=== PATIENT | female | born 1990 | race Caucasian/White ===

== ENCOUNTER 2016-06-27 15:33 | Emergency (ER) | payer OTHER ==
[2016-06-27 15:50] VITALS: BP 129/85
--- NOTE | 2016-06-27 16:16 | UC ---
Skin Complaint HPI - HPI Summary HPI Summary: The patient noticed a reddened pimple on her left lower abdomen four days ago. She states that it is now an abscess. She has a history of abscesses and of MRSA. She has been picking at it and it has been draining but she says that it is still swollen. - History of Current Complaint Chief Complaint: UCSkin Time Seen by Provider: 06/27/16 15:52 Stated Complaint: ABCESS ON STOMACH Hx Obtained From: Patient Hx Last Menstrual Period: 06/26/16 Onset/Duration: Gradual Onset, Lasting Days Onset Severity: Mild Current Severity: Moderate Location: Other - left lower abdomen Aggravating: Touch Alleviating: Nothing Associated Signs & Symptoms: Negative: Fever, Chills, Abdominal Pain - Allergy/Home Medications Allergies/Adverse Reactions: Allergies Allergy/AdvReac Type Severity Reaction Status Date / Time Sulfa Antibiotics Allergy Hives Verified 12/27/14 20:05 Home Medications: Home Medications ValACYclovir (*) [Valtrex 1 GM(*)] 1 gm PO DAILY 06/27/16 [History Confirmed 03/05] Venlafaxine HCl [Effexor XR-] 37.5 mg PO DAILY 06/27/16 [History Confirmed 06/27] Review of Systems Constitutional: Negative Skin: Other - Pimple on left lower abdomen that has swollen Eyes: Negative ENT: Negative Respiratory: Negative Cardiovascular: Negative Gastrointestinal: Negative Genitourinary: Negative Motor: Negative Neurovascular: Negative Musculoskeletal: Negative Neurological: Negative Psychological: Negative All Other Systems Reviewed And Are Negative: Yes PMH/Surg Hx/FS Hx/Imm Hx Previously Healthy: Yes Endocrine History Of: Reports: Thyroid Disease - hypo Psychological History Of: Reports: Anxiety, Depression - Surgical History Surgical History: None - Social History Occupation: Employed Full-time Alcohol Use: Rare Substance Use Type: None Smoking Status (MU): Never Smoked Tobacco Have You Smoked in the Last Year: No - Immunization History Most Recent Influenza Vaccination: n/a Most Recent Tetanus Shot: unk Most Recent Pneumonia Vaccination: n/a Physical Exam Triage Information Reviewed: Yes Appearance: Well-Appearing, No Pain Distress, Obese Vital Signs: Initial Vital Signs Temp 96.8 F 06/27/16 15:42 Pulse 97 06/27/16 15:42 Resp 18 06/27/16 15:42 BP 129/85 06/27/16 15:42 Pulse Ox 98 03/11/17 15:42 Vital Signs Reviewed: Yes Eye Exam: Normal Eyes: Positive: Conjunctiva Clear ENT Exam: Normal ENT: Positive: Normal ENT inspection, Pharynx normal. Negative: Tonsillar swelling, Tonsillar exudate Neck exam: Normal Respiratory: Positive: Chest non-tender, Lungs clear, Normal breath sounds, No respiratory distress, No accessory muscle use Cardiovascular Exam: Normal Cardiovascular: Positive: RRR, No Murmur Abdominal Exam: Other Abdomen Description: Positive: Other: - Open area on left lower abdomen draining serosanginous fluid. Six inch diameter belkofski of erythematous skin. Warm to the touch. Musculoskeletal Exam: Normal Musculoskeletal: Positive: Strength Intact Neurological Exam: Normal Neurological: Positive: Alert, Muscle Tone Normal Psychological Exam: Normal Psychological: Positive: Normal Response To Family Skin Exam: Other Skin: Positive: significant lesion(s) - Area of cellulitis as discussed above. Course/Dx - Course Course Of Treatment: This is a cellulitis affecting an area of the patient's lower left abdomen that she had irritated. We will prescribe her doxycycline. We have marked the area of cellulitis on her abdomen and have instructed her to return if there is no improvement in 36 hours. - Differential Diagnoses - Skin Complaint Differential Diagnoses: Abscess, Cellulitis, Contact Dermatitis - Diagnoses Provider Diagnoses: Cellulitis Discharge - Discharge Plan Condition: Stable Disposition: HOME Prescriptions: DOXYcycline CAP(*) [DOXYcycline 100MG CAP(*)] 100 mg PO BID #14 cap Patient Education Materials: Cellulitis (ED) Print Language: VENEZUELAN Forms: *Work Release Referrals: Gisell MCDANIELPGlenda [Primary Care Provider] - Additional Instructions: This is most likely a cellulitis. We would like you to take Doxycycline for its full course. We have marked the cellulitis on your abdomen. This may worsen slightly in the next 12 hours but if there is no response in 36 hours we would like you to come back to be seen.
== END 2016-06-27 16:25 | disposition home or self-care (01) ==
LOC: UCEAST 15:33
DX: L03.311 Cellulitis of abdominal wall (principal); Z86.14 Personal history of Methicillin resistant Staphylococcus aureus infection; E66.9 Obesity, unspecified; Z88.2 Allergy status to sulfonamides
CPT/HCPCS: 99212; G0463

== ENCOUNTER 2017-07-13 10:11 | Emergency (ER) | payer OTHER ==
[2017-07-13 10:21] VITALS: BP 157/98
--- NOTE | 2017-07-13 10:55 | UC ---
Respiratory Complaint HPI - HPI Summary HPI Summary: Pt presents with cough and sore throat that started this morning. She tells me that when this happens she usually gets bronchitis and gets extremely short of breath. She does have an albuterol inhaler at home, but says its almost empty and is quite old. Denies fever, chills, sinus symptoms, chest pain, abdominal pain, n/v/d/c. - History of Current Complaint Chief Complaint: UCRespiratory Stated Complaint: RESP Time Seen by Provider: 07/13/17 10:50 Hx Obtained From: Patient Hx Last Menstrual Period: 06/18/17 Onset/Duration: Sudden Onset Severity Initially: Moderate Severity Currently: Moderate Pain Intensity: 5 Pain Scale Used: 0-10 Numeric Character: Cough: Nonproductive - Allergies/Home Medications Allergies/Adverse Reactions: Allergies Allergy/AdvReac Type Severity Reaction Status Date / Time Sulfa (Sulfonamide Allergy Hives Verified 07/13/17 10:16 Antibiotics) PMH/Surg Hx/FS Hx/Imm Hx Previously Healthy: Yes Endocrine History: Hypothyroidism Respiratory History: Asthma Psychological History: Anxiety, Depression - Surgical History Surgical History: None - Family History Known Family History: Positive: Unknown - Social History Occupation: Employed Full-time Lives: With Family Alcohol Use: Rare Substance Use Type: None Smoking Status (MU): Never Smoked Tobacco Have You Smoked in the Last Year: No - Immunization History Most Recent Influenza Vaccination: n/a Most Recent Tetanus Shot: unk Most Recent Pneumonia Vaccination: n/a Review of Systems Constitutional: Negative Skin: Negative Eyes: Negative ENT: Sore Throat Respiratory: Cough Cardiovascular: Negative Gastrointestinal: Negative Neurovascular: Negative Neurological: Negative Psychological: Negative All Other Systems Reviewed And Are Negative: Yes Physical Exam - Summary Physical Exam Summary: GENERAL: NAD. WDWN. No pain distress. SKIN: No rashes, sores, ulcers, masses, lesions. HEENT: Head: AT/NC Eyes: EOM intact. Conjunctiva clear without inflammation or discharge. Ears: Hearing grossly normal. TMs intact, no bulging, erythema, or edema. Nose: Nasal mucosa pink and moist. NTTP maxillary and frontal sinus. Throat: Posterior oropharynx without exudates, erythema, or tonsillar enlargement. Uvula midline. NECK: Supple. Nontender. No lymphadenopathy. CHEST: CTAB. No r/r/w. No accessory muscle use. Breathing comfortably and in no distress. CV: RRR. Without m/r/g. Pulses intact. Brisk cap refill. NEURO: Alert. CN II-XII grossly intact. PSYCH: Age appropriate behavior. Triage Information Reviewed: Yes Vital Signs: Initial Vital Signs Temp 97.5 F 07/13/17 10:18 Pulse 96 07/13/17 10:18 Resp 20 07/13/17 10:18 BP 157/98 07/13/17 10:18 Pulse Ox 99 07/13/17 10:18 Diagnostic Evaluation - Laboratory O2 Sat by Pulse Oximetry: 99 Respiratory Course/Dx - Course Course Of Treatment: Suspect viral illness vs bronchitis. Will refill her albuterol inhaler and have her return if symptoms worsen. - Differential Dx/Diagnosis Provider Diagnoses: Viral syndrome Discharge - Sign-Out/Discharge Documenting (check all that apply): Discharge - Discharge Plan Condition: Stable Disposition: HOME Prescriptions: Albuterol HFA INHALER* [Ventolin HFA Inhaler*] 1 - 2 puff INH Q6H PRN #1 mdi PRN Reason: Sob/Wheezing Patient Education Materials: Viral Syndrome (ED) Referrals: Gisell BORJAS CAMP NURSEGlenda [Primary Care Provider] - Additional Instructions: If you develop a fever, shortness of breath, chest pain, new or worsening symptoms - please call your PCP or go to the ED. Your blood pressure was high at todays visit. Please see your primary provider within 4 weeks for recheck and re-evaluation. - Billing Disposition and Condition Condition: STABLE Disposition: HOME
== END 2017-07-13 11:05 | disposition home or self-care (01) ==
LOC: UCEAST 10:11
DX: B34.9 Viral infection, unspecified (principal); E03.9 Hypothyroidism, unspecified; J45.909 Unspecified asthma, uncomplicated; F41.9 Anxiety disorder, unspecified; F32.9 Major depressive disorder, single episode, unspecified; Z88.2 Allergy status to sulfonamides
CPT/HCPCS: 99212; G0463

== ENCOUNTER 2017-08-09 13:51 | Emergency (ER) | payer OTHER ==
[2017-08-09 14:01] VITALS: BP 136/94
--- NOTE | 2017-08-09 14:16 | UC ---
Respiratory Complaint HPI - HPI Summary HPI Summary: Pt presents with continued hoarseness and sore throat. I have seen her twice over the last month for URI/hoarseness related issues. At her last visit her strep was negative, but given her length of symptoms she was started on Amoxicillin and prednisone. Today she says that while taking these she felt a little better, but her symptoms never completely went away. Her hoarseness has been persisting for 3 weeks. Sore throat started over the last 2 days. Denies fever, chills, cough, SOB, chest pain, abdominal pain, n/v/d/c. - History of Current Complaint Chief Complaint: UCRespiratory Stated Complaint: SWOLLEN SORE THROAT Time Seen by Provider: 08/09/17 14:07 Hx Obtained From: Patient Hx Last Menstrual Period: 07/20/17 Onset/Duration: Gradual Onset Severity Initially: Moderate Severity Currently: Moderate Pain Intensity: 6 Pain Scale Used: 0-10 Numeric - Allergies/Home Medications Allergies/Adverse Reactions: Allergies Allergy/AdvReac Type Severity Reaction Status Date / Time Sulfa (Sulfonamide Allergy Hives Verified 08/09/17 14:01 Antibiotics) Home Medications: Home Medications Ibuprofen TAB* [Motrin TAB* 800 MG] 800 mg PO Q6H PRN 08/09/17 [History Confirmed 08/09/17] PMH/Surg Hx/FS Hx/Imm Hx Endocrine History: Thyroid Disease Psychological History: Anxiety, Depression, Bipolar Disorder - Surgical History Surgical History: None - Family History Known Family History: Positive: Unknown - Social History Occupation: Employed Full-time Lives: With Family Alcohol Use: Rare Substance Use Type: None Smoking Status (MU): Never Smoked Tobacco Have You Smoked in the Last Year: No - Immunization History Most Recent Influenza Vaccination: n/a Most Recent Tetanus Shot: unk Most Recent Pneumonia Vaccination: n/a Review of Systems Constitutional: Negative Skin: Negative Eyes: Negative ENT: Sore Throat, Other - Hoarseness Respiratory: Negative Cardiovascular: Negative Gastrointestinal: Negative Neurovascular: Negative Musculoskeletal: Negative Neurological: Negative Psychological: Negative All Other Systems Reviewed And Are Negative: Yes Physical Exam - Summary Physical Exam Summary: GENERAL: NAD. Obese SKIN: No rashes, sores, ulcers, masses, lesions. HEENT: Head: AT/NC Eyes: PERRLA. EOM intact. Conjunctiva clear without inflammation or discharge. Ears: Hearing grossly normal. TMs intact, no bulging, erythema, or edema. Nose: Nasal mucosa pink and moist. NTTP maxillary and frontal sinus. Throat: Posterior oropharynx without exudates, erythema, or tonsillar enlargement. Uvula midline. NECK: Supple. Nontender. No lymphadenopathy. CHEST: CTAB. No r/r/w. No accessory muscle use. Breathing comfortably and in no distress. CV: RRR. Without m/r/g. Pulses intact. Brisk cap refill. NEURO: Alert. CN II-XII grossly intact. PSYCH: Age appropriate behavior. Triage Information Reviewed: Yes Vital Signs: Initial Vital Signs Temp 97.5 F 08/09/17 13:57 Pulse 106 08/09/17 13:57 Resp 16 08/09/17 13:57 BP 136/94 08/09/17 13:57 Pulse Ox 97 08/09/17 13:57 Diagnostic Evaluation - Laboratory O2 Sat by Pulse Oximetry: 97 Respiratory Course/Dx - Course Course Of Treatment: XR: IMPRESSION: NO ACTIVE CARDIOPULMONARY DISEASE. IMPRESSION: UNREMARKABLE SOFT TISSUES OF THE NECK. POC strep negative. Referral to ENT for persistent hoarse voice. - Differential Dx/Diagnosis Provider Diagnoses: Hoarse voice. Sore throat Discharge - Sign-Out/Discharge Documenting (check all that apply): Discharge/Admit/Transfer - Discharge Plan Condition: Stable Disposition: HOME Patient Education Materials: Laryngitis (ED) Referrals: Gisell GARDUNO,Glenda [Primary Care Provider] - Giovanni Simental MD [Medical Doctor] - As Soon As Possible Additional Instructions: If you develop a fever, shortness of breath, chest pain, new or worsening symptoms - please call your PCP or go to the ED. Your blood pressure was high at todays visit. Please see your primary provider within 4 weeks for recheck and re-evaluation. 1) Please call Dr. Simental at the number below to schedule a follow up appointment as soon as possible regarding your persistent hoarse voice. - Billing Disposition and Condition Condition: STABLE Disposition: HOME
--- NOTE | 2017-08-09 14:35 | RAD ---
HISTORY: Cough COMPARISONS: None VIEWS: 4: Frontal dual-energy and lateral views of the chest. FINDINGS: CARDIOMEDIASTINAL SILHOUETTE: The cardiomediastinal silhouette is normal. FIDEL: The fidel are normal. PLEURA: The costophrenic angles are sharp. No pleural abnormalities are noted. LUNG PARENCHYMA: The lungs are clear. ABDOMEN: The upper abdomen is clear. There is no subphrenic gas. BONES AND SOFT TISSUES: No bone or soft tissue abnormalities are noted. OTHER: None. IMPRESSION: NO ACTIVE CARDIOPULMONARY DISEASE.
--- NOTE | 2017-08-09 14:36 | RAD ---
HISTORY: Cough, swelling, sore throat COMPARISONS: None VIEWS: 2, frontal and lateral views of the neck FINDINGS: The prevertebral soft tissues are normal. The epiglottis is normal. There is continuous air column from the pharynx the trachea. No osseous abnormalities are noted. The lung apices are clear. IMPRESSION: UNREMARKABLE SOFT TISSUES OF THE NECK
== END 2017-08-09 15:15 | disposition home or self-care (01) ==
LOC: UCEAST 13:51
DX: R49.0 Dysphonia (principal); J02.9 Acute pharyngitis, unspecified; R05 Cough; E07.9 Disorder of thyroid, unspecified; F41.9 Anxiety disorder, unspecified; F31.9 Bipolar disorder, unspecified; Z88.2 Allergy status to sulfonamides
CPT/HCPCS: 70360; 71046; 87651; 99211; G0463

== ENCOUNTER 2017-08-30 07:56 | Emergency (ER) | payer OTHER ==
--- OUTSIDE RECORDS SUMMARY | 2017-08-30 08:02 | XMS REPORT ---
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 Payers Type Date Identification Numbers Payment Provider Subscriber Health Maintenance Policy Number: [id number] [facility] Ashlyn Farnsworth Organization (O) Group Number: [id number] [address] PayID: [id number] [place] [address] Problems Description No Information Family History Date Family Member(s) Problem(s) Comments General Allergies General Asthma General Cancer General Migraine General Thyroid Disease Social History Type Date Description Comments 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 Use Never Smoked Cigarettes Cigars Never Smoked Cigars Pipe Never Smoked A Pipe Smokeless Tobacco Never Used Smokeless Tobacco ETOH Use Currently rarely consumes alcohol Allergies, Adverse Reactions, Alerts Date Description Reaction Status Severity Comments 08/16/2017 sulfa active Hives Medications Medication Date Status Form Strength Qnty SIG Indications Ordering Provider No Active 08/16/2017 Active Unknown Medications Vital Signs Date Vital Result Comment 08/16/2017 Weight 325.00 lb Weight in kg's 147.420 Height 63 inches 5'3" Height in cm's 160.0 cm BMI (Body Mass Index) 57.6 kg/m2 Results Description No Information Procedures Description No Information Plan of Care No Information Available
--- OUTSIDE RECORDS SUMMARY | 2017-08-30 08:02 | XMS REPORT ---
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 Payers Type Date Identification Numbers Payment Provider Subscriber Health Maintenance Policy Number: [id number] [facility] Ashlyn Farnsworth Organization (O) Group Number: [id number] [address] PayID: [id number] [place] [address] Problems Date Description Provider Status Onset: 08/16/2017 Gastroesophageal reflux disease Giovanni Simental MD Active Onset: 08/16/2017 Difficulty speaking Giovanni Simental MD Active Onset: 08/16/2017 Chronic laryngitis Giovanni Simental MD Active Family History Date Family Member(s) Problem(s) Comments [...] Form Strength Qnty SIG Indications Ordering Provider Omeprazole Active Capsules DR 40mg 90caps one by K21.9 Giovanni 018 mouth one Sarmadparperlita, per day Famotidine Active Tablets 40mg 90tabs 40 mg at K21.9 Giovnani 018 bedtime MD Hola Prednisone Active Tablets 20mg 5tabs 20mg by R49.0 Giovanni 018 mouth one Hola, per day in in the morning No Active Hx Unknown Medications 018 - 018 Vital Signs Date Vital Result Comment 08/16/2017 Weight 325.00 lb Weight in kg's 147.420 Height 63 inches 5'3" Height in cm's 160.0 cm BMI (Body Mass Index) 57.6 kg/m2 Results Description No Information Procedures Date CPT Code Description Status 08/16/2017 86945 Fiberoptic Laryngoscopy Completed Plan of Care 08/16/2017 - Giovanni Simental MDJ37.0 Chronic laryngitisComments:Patient has findings of chronic laryngitis most likely exacerbation of reflux, also secondhand smokeissues. But there is also significant false localization. Speech therapy will be instituted. I will start her on a reflux regime. I will put her on some and short course of prednisone 20 mg once a day for 5 days.R49.0 DysphoniaNew Medication:Prednisone 20 mgK21.9 Gastro-esophageal reflux disease without esophagitisNew Medication:Omeprazole 40 mgFamotidine 40 mg
[2017-08-30 08:13] VITALS: BP 147/91
--- NOTE | 2017-08-30 16:26 | UC ---
Justin Harris Angela, scribed for Rigoberto Chaparro MD on 08/30/17 at 0829 . General HPI - HPI Summary HPI Summary: This pt is a 27 y/o female presenting to [facility] c/o diarrhea x3 days. Pt describes watery diarrhea, without blood or mucous since 3 days ago. She states she went to the ER with her son a few days ago and since then she developed diarrhea. Pt additionally states decreased appetite, nausea, decreased water intake. Denies vomiting. Pt notes this morning she felt dizziness and weakness, therefore she decided to come in to urgent care today. Denies abd pain, vaginal bleeding, vaginal discharge, dysuria, hematuria, urinary frequency. - History of Current Complaint Chief Complaint: UCAbdominalPain Stated Complaint: ABDOMINAL COMPLAINT Time Seen by Provider: 08/30/17 08:11 Hx Obtained From: Patient Hx Last Menstrual Period: August 21 Onset/Duration: Lasting Days, Still Present Timing: Constant Current Severity: None Pain Intensity: 0 Aggravating: nothing Alleviating: nothing Associated Signs & Symptoms: Positive: Dizziness, Diarrhea, Nausea, Weakness, Other - POS: nausea, decreaed appetite. NEG: hematuria, urinary frequency, vaginal beleding or discharge.. Negative: Abdominal Pain, Dysuria, Fever, Vomiting - Allergy/Home Medications Allergies/Adverse Reactions: Allergies Allergy/AdvReac Type Severity Reaction Status Date / Time Sulfa (Sulfonamide Allergy Hives Verified 08/30/17 08:13 Antibiotics) Home Medications: Home Medications Famotidine 1 tab PO DAILY 08/30/17 [History Confirmed 08/30/17] PMH/Surg Hx/FS Hx/Imm Hx Endocrine History: Hypothyroidism Other Cardiovascular History: DENIES: HTN Psychological History: Depression - Surgical History Surgical History: None Surgery Procedure, Year, and Place: denies - Family History Known Family History: Positive: Respiratory Disease - Father: COPD, emphysema Family History: Mother: Lung CA. - Social History Alcohol Use: Rare Substance Use Type: None Smoking Status (MU): Never Smoked Tobacco Have You Smoked in the Last Year: No - Immunization History Most Recent Influenza Vaccination: n/a Most Recent Tetanus Shot: unk Most Recent Pneumonia Vaccination: n/a Review of Systems Constitutional: Other - POS: decerased appetite Skin: Negative Eyes: Negative ENT: Negative Respiratory: Negative Cardiovascular: Negative Gastrointestinal: Diarrhea, Nausea, Other - NEG: abd pain Genitourinary: Negative Motor: Negative Neurovascular: Negative Musculoskeletal: Negative Neurological: Weakness, Other - POS: dizziness Psychological: Negative All Other Systems Reviewed And Are Negative: Yes Physical Exam - Summary Physical Exam Summary: VITAL SIGNS: Reviewed. GENERAL: Patient is an obese female who is lying comfortable in the stretcher. Patient is not in any acute respiratory distress. HEAD AND FACE: Normocephalic EYES: PERRLA, EOMI x 2. EARS: Hearing grossly intact. MOUTH: Oropharynx within normal limits. NECK: Supple, trachea is midline, no adenopathy, no JVD, no carotid bruit. CHEST: Symmetric, no tenderness at palpation LUNGS: Clear to auscultation bilaterally. No wheezing or crackles. CVS: Regular rate and rhythm, S1 and S2 present, no murmurs or gallops appreciated. ABDOMEN: Soft, non-tender. Bowel sounds are normal. No abdominal abnormal pulsations. EXTREMITIES: Full ROM in all major joints, no edema, no cyanosis or clubbing. NEURO: Alert and oriented x 3. No acute neurological deficits. Speech is normal and follows commands. SKIN: Dry and warm Triage Information Reviewed: Yes Vital Signs: Initial Vital Signs Temp 97.7 F 08/30/17 08:07 Pulse 75 08/30/17 08:07 Resp 21 08/30/17 08:07 BP 147/91 08/30/17 08:07 Pulse Ox 100 08/30/17 08:07 Vital Signs Reviewed: Yes Course/Dx - Course Course Of Treatment: This pt is a 27 y/o female presenting to [facility] c/o diarrhea x3 days. Pt describes watery diarrhea, without blood or mucous since 3 days ago. She states she went to the ER with her son a few days ago and since then she developed diarrhea. Pt additionally states decreased appetite, nausea, decreased water intake. Denies vomiting. Pt notes this morning she felt dizziness and weakness, therefore she decided to come in to urgent care today. Denies abd pain, vaginal bleeding, vaginal discharge, dysuria, hematuria, urinary frequency. The pt seems to be dehydrated, possibly because of the diarrhea and decreased water intake. POC urinalysis is negative. Urine is negative. Therefore pt will be discharged home with follow up from PCP. Pt was given a prescription for Zofran. She was recommended the BRAT diet and to increase her fluid intake. Pt was able to provide a stool sample and stool cultures were sent. She was recommended to go to the ER or return to Urgent Care if symptoms worsen, especially if she develops abdominal pain, worsening nausea and vomiting, despite Zofran. I discussed all the test results with the patient. Plan of care was discussed with the patient and pt understands and agrees. All questions were answered to patient satisfaction. There were no further complaints or concerns. Pt is hemodynamically stable, alert and oriented x3. Patient was found to have increased blood pressure in UC. The patient will follow up with PCP for better control of BP. - Differential Dx - Multi-Symptom Provider Diagnoses: Nausea and vomiting. Diarrhea Discharge - Sign-Out/Discharge Documenting (check all that apply): Discharge/Admit/Transfer - Discharge - Discharge Plan Condition: Stable Disposition: HOME Prescriptions: Ondansetron ODT TAB* [Zofran 4 MG Odt TAB*] 4 mg PO Q6H PRN #10 tab.odt PRN Reason: Vomiting Patient Education Materials: Acute Nausea and Vomiting (ED), Acute Diarrhea (ED ) Referrals: Gisell BORJAS EARLY CHILDHOOD TEACHER ASSISTANTGlenda [Primary Care Provider] - Additional Instructions: Take medications as instructed Increase your fluid intake Return to the UC if symptoms worsen The documentation as recorded by the Justin hahn Angela accurately reflects the service I personally performed and the decisions made by me, Rigoberto Chaparro MD.
--- NOTE | 2017-08-31 07:17 | UC ---
- Progress Note Progress Note: Stool culture neg wbc neg c dif no anibal ljj 08/31/2017 0717 Discharge - Sign-Out/Discharge Documenting (check all that apply): Post-Discharge Follow Up - Discharge Plan Condition: Stable Disposition: HOME Prescriptions: Ondansetron ODT TAB* [Zofran 4 MG Odt TAB*] 4 mg PO Q6H PRN #10 tab.odt PRN Reason: Vomiting Patient Education Materials: Acute Nausea and Vomiting (ED), Acute Diarrhea (ED ) Referrals: Gisell BORJAS EARTH MOVING MACHINE OPERATORGlenda [Primary Care Provider] - Additional Instructions: Take medications as instructed Increase your fluid intake Return to the UC if symptoms worsen - Billing Disposition and Condition Condition: STABLE Disposition: HOME
== END 2017-08-30 08:57 | disposition home or self-care (01) ==
LOC: UCEAST 07:56
DX: R11.2 Nausea with vomiting, unspecified (principal); R19.7 Diarrhea, unspecified; R42 Dizziness and giddiness; R53.1 Weakness; Z32.02 Encounter for pregnancy test, result negative; E03.9 Hypothyroidism, unspecified; F32.9 Major depressive disorder, single episode, unspecified; Z88.2 Allergy status to sulfonamides
CPT/HCPCS: 81003; 83630; 84702; 87045; 87046; 87493; 99212; G0463

== ENCOUNTER 2017-08-30 19:02 | Emergency (ER) | payer OTHER ==
[2017-08-30] MEDS ORDERED: NS 0.9% 1000 ML* 2,000 ML IV ONE (20:01)
[2017-08-30 20:39] LABS: ABS Basophils 0.1 10^3/ul (0-0.2); ABS Eosinophils 0 10^3/ul (0-0.6); ABS Lymphocytes 3.2 10^3/ul (1.0-4.8); ABS Monocytes 0.6 10^3/ul (0-0.8); ABS Neutrophils 4.3 10^3/ul (1.5-7.7); ABS Nucleated RBC 0 10^3/ul; Eosinophil % 0.1 % (0-6); Hematocrit 39 % (35-47); Hemoglobin 13.4 g/dl (12.0-16.0); Lymphocyte % 39.1 % (25-47); Mean Corpuscular HGB Conc 34 g/dl (31-36); Mean Corpuscular Hemoglobin 29 pg (27-31); Mean Corpuscular Volume 86 fL (80-97); Mean Platelet Volume 7.7 um3 (7.4-10.4); Nucleated Red Blood Cells % 0.1; Platelet Count 334 10^3/ul (150-450); Red Blood Count 4.57 10^6/ul (4.0-5.4); Red Cell Distribution Width 15 % (10.5-15); White Blood Count 8.1 10^3/ul (3.5-10.8)
[2017-08-30 20:56] LABS: EGFR Non-African American 83.6 (>60)
--- NOTE | 2017-08-30 22:11 | ED ---
Avery Harris Stephanie, scribed for Pepito Arana MD on 08/30/17 at 2018 . GI/ HPI - HPI Summary HPI Summary: The pt is a 27 y/o F presenting to the ED with c/o N/V/D that began on 08/27/17 s /p consuming dinner from [employer]. She describes her diarrhea as loose stools. Symptoms include weakness, dizziness and lightheadedness that began on 08/29/17. She began to experience abd pain today. She denies fever and blood in BM. The pt states she is able to eat and drink. The pt denies travel in the last few months. LKMP on 08/21/17. - History of Current Complaint Chief Complaint: EDAbdPain Time Seen by Provider: 08/30/17 19:53 Stated Complaint: ABD PAINS W DIAHREA Hx Obtained From: Patient Hx Last Menstrual Period: August 21 Onset/Duration: Started Days Ago - 4, Still Present Timing: Constant Current Severity: Moderate Pain Intensity: 3 Location of Pain: Diffuse Pain Characteristics: Cramping Associated Signs and Symptoms: Positive: Dizziness, Weakness, Nausea, Diarrhea, Lightheadedness. Negative: Blood w/Stool, Fever Aggravating Factor(s): Nothing Alleviating Factor(s): Nothing - Additional Pertinent History Primary Care Physician: DELIA - Allergy/Home Medications Allergies/Adverse Reactions: Allergies Allergy/AdvReac Type Severity Reaction Status Date / Time Sulfa (Sulfonamide Allergy Hives Verified 08/30/17 08:13 Antibiotics) Home Medications: Home Medications Famotidine [Acid Ve Teacher] 10 mg PO DAILY 08/30/17 [History Confirmed 08/30/17] Ferrous Sulfate TAB* 325 mg PO BID WITH MEALS 08/30/17 [History Confirmed ] Levothyroxine TAB* [Synthroid TAB*] 137 mcg PO DAILY 08/30/17 [History Confirmed 08/30/17] Magnesium Oxide TAB* [MagOx 400 TAB*] 400 mg PO DAILY 08/30/17 [History Confirmed 08/30/17] Omeprazole CAP* [Prilosec CAP* 20 MG] 20 mg PO BID 08/30/17 [History Confirmed 08/30/17] Oxybutynin Chloride [Oxybutynin Chloride ER] 30 mg PO DAILY 08/30/17 [History Confirmed 08/30/17] Riboflavin (B2) (NF) [Vitamin B-2 (NF)] 200 mg PO DAILY 08/30/17 [History Confirmed 08/30/17] ValACYclovir (*) [Valtrex 500 mg (*)] 500 mg PO DAILY 08/30/17 [History Confirmed 08/30/17] busPIRone TAB* [Buspar TAB*] 10 mg PO BID 08/30/17 [History Confirmed 08/30/17] PMH/Surg Hx/FS Hx/Imm Hx Endocrine/Hematology History: Reports: Hx Thyroid Disease - hypo Sensory History: Denies: Hx Legally Blind EENT History: Denies: Hx Deafness Psychiatric History: Reports: Hx Anxiety, Hx Depression - Surgical History Surgery Procedure, Year, and Place: denies Infectious Disease History: Yes Infectious Disease History: Reports: Hx of Known/Suspected MRSA, History Other Infectious Disease - HSV Denies: Traveled Outside the [place] in Last 30 Days - Family History Known Family History: Positive: Respiratory Disease - Father: COPD, emphysema Family History: Mother: Lung CA. - Social History Occupation: Employed Part-time Lives: With Family Alcohol Use: Rare Hx Substance Use: No Substance Use Type: Reports: None Hx Tobacco Use: No Smoking Status (MU): Never Smoked Tobacco Have You Smoked in the Last Year: No Review of Systems Negative: Fever Positive: Abdominal Pain, Diarrhea, Nausea Genitourinary: Negative - blood in stool Neurological: Other - dizziness, lightheadedness Positive: Weakness All Other Systems Reviewed And Are Negative: Yes Physical Exam - Summary Physical Exam Summary: Appearance: Well-appearing, Well-nourished, lying in bed comfortably Skin: Warm, dry, no obvious rash Eyes: sclera anicteric, no conjunctiva pallor ENT: mucous membranes dry, pharynx appears normal Neck: Supple, nontender Respiratory: Clear to auscultation, no signs of respiratory distress Cardiovascular: Normal S1, S2. No murmurs. Normal distal pulses in tibial and radial bilaterally. Abdomen: Soft, nontender, normal active bowel sounds present Musculoskeletal: Normal, Strength/ROM Intact Neurological: A&Ox3, awake and alert, mentation is normal, speech is fluent and appropriate Psychiatric: affect is normal, does not appearing anxious or depressed Triage Information Reviewed: Yes Vital Signs On Initial Exam: Initial Vitals Temp Pulse Resp BP Pulse Ox 97.5 F 79 18 152/119 98 08/30/17 19:03 08/30/17 19:03 08/30/17 19:03 08/30/17 19:03 08/30/17 19:03 Vital Signs Reviewed: Yes Diagnostics - Vital Signs Vital Signs Temp Pulse Resp BP Pulse Ox 08/30/17 19:03 97.5 F 79 18 152/119 98 - Laboratory Lab Results: Lab Results 08/30/17 08/30/17 Range/Units 20:32 20:32 WBC 8.1 (3.5-10.8) 10^3/ul RBC 4.57 (4.0-5.4) 10^6/ul Hgb 13.4 (12.0-16.0) g/dl Hct 39 (35-47) % MCV 86 (80-97) fL MCH 29 (27-31) pg MCHC 34 (31-36) g/dl RDW 15 (10.5-15) % Plt Count 334 (150-450) 10^3/ul MPV 7.7 (7.4-10.4) um3 Neut % (Auto) 52.7 (38-83) % Lymph % (Auto) 39.1 (25-47) % [place] % (Auto) 7.4 H (0-7) % Eos % (Auto) 0.1 (0-6) % Baso % (Auto) 0.7 (0-2) % Absolute Neuts (auto) 4.3 (1.5-7.7) 10^3/ul Absolute Lymphs (auto) 3.2 (1.0-4.8) 10^3/ul Absolute Monos (auto) 0.6 (0-0.8) 10^3/ul Absolute Eos (auto) 0 (0-0.6) 10^3/ul Absolute Basos (auto) 0.1 (0-0.2) 10^3/ul Absolute Nucleated RBC 0 10^3/ul Nucleated RBC % 0.1 Sodium 138 L (139-145) mmol/L Potassium 3.8 (3.5-5.0) mmol/L Chloride 107 (101-111) mmol/L Carbon Dioxide 22 (22-32) mmol/L Anion Gap 9 (2-11) mmol/L BUN 12 (6-24) mg/dL Creatinine 0.81 (0.51-0.95) mg/dL Est GFR ( Amer) 107.5 (>60) Est GFR (Non-Af Amer) 83.6 (>60) BUN/Creatinine Ratio 14.8 (8-20) Glucose 92 (70-100) mg/dL Calcium 9.3 (8.6-10.3) mg/dL Total Bilirubin 0.30 (0.2-1.0) mg/dL AST 17 (13-39) U/L ALT 18 (7-52) U/L Alkaline Phosphatase 87 (34-104) U/L Total Protein 7.2 (6.4-8.9) g/dL Albumin 4.2 (3.2-5.2) g/dL Globulin 3.0 (2-4) g/dL Albumin/Globulin Ratio 1.4 (1-3) Result Diagrams: 08/30/17 20:32 08/30/17 20:32 Lab Statement: Any lab studies that have been ordered have been reviewed, and results considered in the medical decision making process. Re-Evaluation - Re-Evaluation First Eval Re-Evaluation Time: 21:58 Change: Unchanged - ED physician discussed plan of discharge with the pt and the pt understands and agrees with plan. GIGU Course/Dx - Diagnoses Differential Diagnoses - Female: Gall Bladder Disease Provider Diagnoses: Gastroenteritis Discharge - Sign-Out/Discharge Documenting (check all that apply): Discharge/Admit/Transfer - Discharge Plan Condition: Good Disposition: HOME Patient Education Materials: Gastroenteritis (ED) Referrals: Gisell BORJAS DIGITAL MARKETING SPECIALISTGlenda [Primary Care Provider] - The documentation as recorded by the Avery hahn Stephanie accurately reflects the service I personally performed and the decisions made by me, Pepito Arana MD.
[2017-08-30 22:15] VITALS: BP 122/87
== END 2017-08-30 22:17 | disposition home or self-care (01) ==
LOC: ED 19:02
DX: K52.9 Noninfective gastroenteritis and colitis, unspecified (principal); Z88.2 Allergy status to sulfonamides
CPT/HCPCS: 36415; 80053; 85025; 99282

== ENCOUNTER 2017-09-28 09:19 | Emergency (ER) | payer OTHER ==
[2017-09-28 09:31] VITALS: BP 133/80
--- NOTE | 2017-09-28 10:18 | UC ---
Complaint Female HPI - HPI Summary HPI Summary: 27 yo female presents with right flank pain that started early this morning while at work. She tells me that for the past week she has had urinary urgency and frequency, but thought it was getting better. Denies fever, chills, abdominal pain, n/v/d/c, SOB, chest pain. No saddle anesthesia, numbness, or tingling. - History Of Current Complaint Chief Complaint: UCBackPain Stated Complaint: LOWER BACK PAIN ON SIDE Time Seen by Provider: 09/28/17 10:18 Hx Obtained From: Patient Hx Last Menstrual Period: 09/17/17 Onset/Duration: Sudden Onset Timing: Constant Severity Initially: Mild Severity Currently: Mild Pain Intensity: 4 Pain Scale Used: 0-10 Numeric - Allergies/Home Medications Allergies/Adverse Reactions: Allergies Allergy/AdvReac Type Severity Reaction Status Date / Time Sulfa (Sulfonamide Allergy Hives Verified 09/28/17 09:31 Antibiotics) PMH/Surg Hx/FS Hx/Imm Hx Endocrine History: Hypothyroidism GI/ History: Gastroesophageal Reflux Psychological History: Anxiety - Surgical History Surgical History: None Surgery Procedure, Year, and Place: denies - Family History Known Family History: Positive: Unknown, Respiratory Disease - Father: COPD, emphysema Family History: Mother: Lung CA. - Social History Occupation: Employed Full-time Lives: With Family Alcohol Use: Rare Substance Use Type: None Smoking Status (MU): Never Smoked Tobacco Have You Smoked in the Last Year: No - Immunization History Most Recent Influenza Vaccination: n/a Most Recent Tetanus Shot: unk Most Recent Pneumonia Vaccination: n/a Review of Systems Constitutional: Negative Skin: Negative Respiratory: Negative Cardiovascular: Negative Gastrointestinal: Negative Genitourinary: Frequency, Urgency Neurovascular: Negative Musculoskeletal: Other: - Right flank pain Neurological: Negative Psychological: Negative All Other Systems Reviewed And Are Negative: Yes Physical Exam - Summary Physical Exam Summary: GENERAL: NAD. WDWN. No pain distress. SKIN: No rashes, sores, lesions, or open wounds. NECK: Supple. Nontender. No lymphadenopathy. CHEST: CTAB. No r/r/w. No accessory muscle use. Breathing comfortably and in no distress. CV: RRR. Without m/r/g. Pulses intact. Brisk cap refill. ABDOMEN: Soft. NTTP. No distention or guarding. No CVA tenderness. Bowel sounds present MSK: Low back NTTP. FROM B/L LEs. Strength 5/5. NEURO: Alert. CN II-XII grossly intact. PSYCH: Age appropriate behavior. Triage Information Reviewed: Yes Vital Signs: Initial Vital Signs Temp 97 F 09/28/17 09:26 Pulse 82 09/28/17 09:26 Resp 22 09/28/17 09:26 BP 133/80 09/28/17 09:26 Pulse Ox 100 09/28/17 09:26 Complaint Female Dx - Course Course Of Treatment: UA with trace leuks. Will treat as UTI and send urine culture to lab. F/u prn - Differential Dx/Diagnosis Provider Diagnoses: UTI Discharge - Sign-Out/Discharge Documenting (check all that apply): Discharge/Admit/Transfer - Discharge Plan Condition: Stable Disposition: HOME Prescriptions: Nitrofurantoin Monohyd/M-Cryst [Macrobid 100 mg Capsule] 100 mg PO BID #10 cap Patient Education Materials: Urinary Tract Infection in Women (DC) Forms: *Work Release Referrals: Gisell MCDANIELPGlenda [Primary Care Provider] - Additional Instructions: If you develop a fever, shortness of breath, chest pain, new or worsening symptoms - please call your PCP or go to the ED. - Billing Disposition and Condition Condition: STABLE Disposition: Home
--- NOTE | 2017-09-29 19:34 | PN ---
Progress Note - Progress Note Date of Service: 09/29/17 Note: + E Coli on Marobid await sensitivity ljj 09/29/2017
== END 2017-09-28 10:49 | disposition home or self-care (01) ==
LOC: UCEAST 09:19
DX: N39.0 Urinary tract infection, site not specified (principal); E03.9 Hypothyroidism, unspecified; K21.9 Gastro-esophageal reflux disease without esophagitis; F41.9 Anxiety disorder, unspecified; Z88.2 Allergy status to sulfonamides; Z83.6 Family history of other diseases of the respiratory system; Z80.1 Family history of malignant neoplasm of trachea, bronchus and lung
CPT/HCPCS: 81003; 87077; 87086; 87186; 99212; G0463

== ENCOUNTER 2018-01-31 18:15 | Emergency (ER) | payer OTHER ==
[2018-01-31 19:27] VITALS: BP 130/94
--- NOTE | 2018-01-31 20:27 | UC ---
Lower Extremity/Ankle HPI - HPI Summary HPI Summary: Arqz-nabe-orv woman coming in today with a chief complaint of left foot pain. Been going on for several days is the distal foot on the dorsal aspect of the lateral metatarsals. Pain is worse with movement and palpation. At work she is walking around and moving around a lot. No known trauma. - History of Current Complaint Chief Complaint: UCLowerExtremity Stated Complaint: FOOT PAIN Time Seen by Provider: 01/31/18 20:00 Hx Last Menstrual Period: 01/19/18 Pain Intensity: 3 - Allergies/Home Medications Allergies/Adverse Reactions: Allergies Allergy/AdvReac Type Severity Reaction Status Date / Time Sulfa (Sulfonamide Allergy Hives Verified 01/31/18 19:08 Antibiotics) Home Medications: Home Medications Venlafaxine CAP (NF) [Effexor CAP (NF)] 75 mg PO DAILY 01/31/18 [History Confirmed 01/31/18] PMH/Surg Hx/FS Hx/Imm Hx Endocrine History: Hypothyroidism - Surgical History Surgical History: None Surgery Procedure, Year, and Place: denies - Family History Known Family History: Positive: Unknown, Respiratory Disease - Father: COPD, emphysema Family History: Mother: Lung CA. - Social History Alcohol Use: None Substance Use Type: None Smoking Status (MU): Never Smoked Tobacco Have You Smoked in the Last Year: No - Immunization History Most Recent Influenza Vaccination: n/a Most Recent Tetanus Shot: unk Most Recent Pneumonia Vaccination: n/a Review of Systems Constitutional: Negative Skin: Negative Eyes: Negative ENT: Negative Respiratory: Negative Cardiovascular: Negative Gastrointestinal: Negative Motor: Negative Neurovascular: Negative Musculoskeletal: Other: - SEE HPI Neurological: Negative Psychological: Negative Is Patient Immunocompromised?: No All Other Systems Reviewed And Are Negative: Yes Physical Exam Triage Information Reviewed: Yes Appearance: Well-Appearing, No Pain Distress, Well-Nourished Vital Signs: Initial Vital Signs Temp 97.6 F 01/31/18 19:02 Pulse 91 01/31/18 19:02 Resp 16 01/31/18 19:02 Pulse Ox 99 01/31/18 19:02 Vital Signs Reviewed: Yes Eye Exam: Normal Eyes: Positive: Conjunctiva Clear Neck exam: Normal Neck: Positive: Supple Respiratory: Positive: No respiratory distress Musculoskeletal Exam: Normal Musculoskeletal: Positive: Strength Intact, ROM Intact Neurological Exam: Normal Neurological: Positive: Alert, Muscle Tone Normal Psychological Exam: Normal Psychological: Positive: Normal Response To Family, Age Appropriate Behavior Skin Exam: Normal Lower Extremity Course/Dx - Course Course Of Treatment: Review of the x-ray I do not see any fracture and I discussed this with the patient. Radiologist reading pending. The plan now is to ice it elevated rested as best possible use good arch support and anti- inflammatories such as ibuprofen. Follow-up with primary doctor if not improved recheck here sooner if worse. - Differential Dx/Diagnosis Provider Diagnoses: LEFT FOOT PAIN Discharge - Sign-Out/Discharge Documenting (check all that apply): Patient Departure All imaging exams completed and their final reports reviewed: No - Discharge Plan Condition: Stable Disposition: HOME Patient Education Materials: Foot Sprain (ED) Referrals: Glenda Posada RN [Primary Care Provider] - Additional Instructions: FOLLOW UP WITH YOUR DOCTOR IF NOT COMPLETELY IMPROVED. GET RECHECKED FOR ANY WORSENING OF YOUR CONDITION OR QUESTIONS OR CONCERNS. - Billing Disposition and Condition Condition: STABLE Disposition: Home
--- NOTE | 2018-02-01 07:52 | RAD ---
INDICATION: Atraumatic and distal left metatarsal pain x6 months COMPARISON: None. TECHNIQUE: 3 views of the left foot were obtained. FINDINGS: The adequately corticated bones are properly aligned. Joint spaces appear maintained. No fracture, dislocation or focal bony abnormality is seen. IMPRESSION: Normal radiograph of the left foot. If the patient's symptoms persist, follow-up imaging is recommended. R0
--- NOTE | 2018-02-01 08:41 | UC ---
- Progress Note Progress Note: Patient Name: JEOVANY BROWNLEE Medical Record#: [id number] Ordering Physician: Kraig Currie MD Acct.#: [id number] : 1990 Age: 27 Sex: F Location: [facility] Exam Date: 01/31/182010 ADM Status: DEP ER Order Information: FOOT LEFT 3+ VWS Accession Number: [id number] CPT: 63773 INDICATION: Atraumatic and distal left metatarsal pain x6 months COMPARISON: None. TECHNIQUE: 3 views of the left foot were obtained. FINDINGS: The adequately corticated bones are properly aligned. Joint spaces appear maintained. No fracture, dislocation or focal bony abnormality is seen. IMPRESSION: Normal radiograph of the left foot. If the patient's symptoms persist, follow-up imaging is recommended. R0 <Electronically signed by Papa Cruz MD in OV> 02/01/18748 Dictated By: Papa Cruz MD Dictated Date/Time: 02/01/18748 Transcribed Date/Time: 02/01/18746 Copy to: CC:Glenda Jameson RN [employer]IZONT[employer] SET UP OPERATOR; Kraig Currie MD Imaging - [facility] Imaging - [facility] [address] [place] [address] ph [phone]) ph ([phone]) ph ([phone]) This report is only to be considered final once signed by the Provider(s) as displayed in the "<Electronically Signed by >" field (s). Absence of a signature indicates the report is in a draft status and still needs to be finalized. In the event this document was created by someone other than the signing Provider, the individual initiating the document will be listed in the "Entered by:" or "Dictated by:" [email or web address]. 1 of 1 Discharge - Sign-Out/Discharge Documenting (check all that apply): Post-Discharge Follow Up All imaging exams completed and their final reports reviewed: Yes - Discharge Plan Condition: Stable Disposition: HOME Patient Education Materials: Foot Sprain (ED) Referrals: Gisell MCDANIELPGlenda [Primary Care Provider] - Additional Instructions: FOLLOW UP WITH YOUR DOCTOR IF NOT COMPLETELY IMPROVED. GET RECHECKED FOR ANY WORSENING OF YOUR CONDITION OR QUESTIONS OR CONCERNS. - Billing Disposition and Condition Condition: STABLE Disposition: Home
== END 2018-01-31 21:18 | disposition home or self-care (01) ==
LOC: UCEAST 18:15
DX: M79.672 Pain in left foot (principal); Z88.2 Allergy status to sulfonamides
CPT/HCPCS: 99212; G0463

== ENCOUNTER 2019-04-03 09:44 | Emergency (ER) | payer OTHER ==
--- OUTSIDE RECORDS SUMMARY | 2019-04-03 09:52 | XMS REPORT | Summary of Care ---
:1990 Author Organization [facility] Address [address] [address] Care Team Providers Name Role Phone Brian Renteria Primary Care Provider Reason for Visit Reason Comments Letter for School/Work dpt would like a letter to go back to work without any restrictions Encounter Details Date Type Department Care Team Description 03/01/2019 Office Visit [place] Yasmin Noland, Depression with Practice PASingh anxiety (Primary Dx) [address] [place] [address] [place] [address] [phone] Allergies No Known Allergiesdocumented as of this encounter (statuses as of 03/01/2019) Medications Medication Sig Dispensed Refills Start Date End Date Status Iron, Ferrous Take 1 Tab by 0 Active Gluconate, 256 (28 FE) mouth DAILY. MG Oral Indications: Iron TabIndications: Iron Deficiency Deficiency Topiramate 25 MG Oral Take by mouth 0 Active CAPSULE SPRINKLE DAILY. Omeprazole 40 MG Oral Take by mouth 0 Active CAPSULE DELAYED DAILY. RELEASE Rizatriptan Benzoate Take by mouth 0 Active 10 MG Oral Tab DAILY NEEDED. trazodone (DESYREL) Take 1-2 Tabs by 60 Tab 5 10/04/2018 Active 100 MG Oral Tab mouth EVERY BEDTIME. oxybutynin (DITROPAN Take 3 Tabs by 270 Tab 3 10/26/2018 Active XL) 10 MG Oral TABLET mouth DAILY. SR 24 HR loratadine Take 1 Tab by 90 Tab 3 10/27/2018 Active (CLARITIN,ALAVERT) 10 mouth DAILY. MG Oral Indications: TabIndications: Hayfever Seasonal Allergic Rhinitis magnesium oxide Take 1 Tab by 30 Tab 0 11/03/2018 Active (MAG-OX) 400 (241.3 mouth DAILY. Mg) MG Oral Tab duloxetine (CYMBALTA) Take 1 Cap by 90 Cap 5 11/22/2018 Active 60 MG Oral CAPSULE mouth DAILY. ENTERIC COATED PARTICLESIndications: Depression with anxiety valacyclovir (VALTREX) Take 1 Tab by 90 Tab 3 01/06/2019 Active 500 MG Oral mouth DAILY. TabIndications: Indications: Genital Herpes Simplex Genital Herpes levothyroxine Take 1 Tab by 30 Tab 1 01/16/2019 Active (SYNTHROID) 137 MCG mouth DAILY. Oral Tab Riboflavin (VITAMIN Take 2 Tabs by 60 Tab 5 01/31/2019 Active B-2) 100 MG Oral Tab mouth DAILY. busPIRone 30 MG Oral Take 1 Tab by 60 Tab 4 02/03/2019 Active Tab mouth TWICE DAILY. buPROPion XL Take 1 Tab by 60 Tab 5 02/03/2019 Active (WELLBUTRIN XL) 150 MG mouth DIRECTED. Oral TABLET SR 24 HR 1 in am 10 days 24 hour tablet then 2 in am famotidine (PEPCID) 40 Take 1 Tab by 90 Tab 3 02/03/2019 Active MG Oral Tab mouth DAILY. duloxetine (CYMBALTA) TAKE ONE CAPSULE 30 Cap 5 02/20/2019 Active 30 MG Oral CAPSULE BY MOUTH EVERY DAY ENTERIC COATED WITH 60MG DOSE FOR PARTICLES TOTAL OF 90MG documented as of this encounter (statuses as of 03/01/2019) Active Problems Problem Noted Date Mixed stress and urge urinary incontinence 10/26/2018 Prolonged grief reaction 10/04/2018 Hypothyroidism due to acquired atrophy of thyroid 07/21/2016 Recurrent genital herpes 07/21/2016 Overview: Valtrex suppressive therapy Morbid obesity due to excess calories 07/21/2016 Iron deficiency anemia due to chronic blood loss 07/21/2016 History of abnormal cervical Pap smear 07/21/2016 Overview: 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 Pineda subsequent pap smears normal Obstructive sleep apnea 07/21/2016 Overview: Sleep study Miriam mild disease 2011 documented as of this encounter (statuses as of 03/01/2019) Resolved Problems Problem Noted Date Resolved Date Moderate episode of recurrent major depressive disorder 10/04/2018 10/04/2018 Depression with anxiety 07/21/2016 10/04/2018 Overview: Recurrent never Hospitalized Venlafaxine and buspar seen by therapist in past no effect Anxiety 07/21/2016 07/21/2016 documented as of this encounter (statuses as of 03/01/2019) Immunizations Name Administration Dates Next Due DTAP Vaccine 08/29/1993, 09/29/1991, 1990 MMR VACCINE 08/29/1993, 09/29/1991 Polio - Inactivated Vaccine 08/29/1993, 09/29/1991, 1990 TDAP Vaccine 01/13/2011 documented as of this encounter Social History Tobacco Use Types Packs/Day Years Used Date Never Smoker Smokeless Tobacco: Never Used Alcohol Use Drinks/Week oz/Week Comments No Sex Assigned at Date Recorded Not on file Job Start Date Occupation Industry Not on file Not on file Not on file Travel History Travel Start Travel End No recent travel history available. documented as of this encounter Last Filed Vital Signs Vital Sign Reading Time Taken Comments Blood Pressure 134/88 03/01/2019 2:04 PM EST Pulse 97 03/01/2019 2:04 PM EST Temperature 36.9 03/01/2019 2:04 PM EST C (98.5 F) Respiratory Rate - - Oxygen Saturation 98% 03/01/2019 2:04 PM EST Inhaled Oxygen Concentration - - Weight 145.6 kg (321 lb) 03/01/2019 2:04 PM EST Height 160 cm (5' 3") 03/01/2019 2:04 PM EST Body Mass Index 56.86 03/01/2019 2:04 PM EST documented in this encounter Patient Instructions Patient InstructionsDodgYasmin velasquez PA-C - 03/01/2019 2:00 PM ESTWrote back to work note, patient requested return date of 03/06/19 Continue with current meds, healthy diet, keep well hydrated Continue seeing therapist and psychiatrist documented in this encounter Progress Notes Yasmin Thorpe PA-C - 03/01/2019 2:00 PM EST PATIENT: Juany Farnsworth : 1990 DATE OF SERVICE: 03/01/2019 REFERRING PRACTITIONER: Cain PRIMARY CARE PROVIDER: Brian Renteria CHIEF COMPLAINT: Chief Complaint Patient presents with Letter for School/Work dpt would like a letter to go back to work without any restrictions Subjective HISTORY OF PRESENT ILLNESS: Juany Farnsworth is a 28-y.o. female who presents for letter to return to work without restrictions Was seen in office 02/21/[address] Renteria 02/03/19, prescribed wellbutrin 150 and BuSpar increased to 30mg Saw psychiatrist today, recommended she get new job -- says will give 2 week notice wednesday Has been seeing therapist weekly Doing better, less anxiety "I'm back to normal self" Denies fever, chills, nausea, vomiting, diarrhea, chest pains, SOB No past medical history on file. No past surgical history on file. No family history on file. Current Outpatient Medications Medication Sig buPROPion XL (WELLBUTRIN XL) 150 MG Oral TABLET SR 24 HR 24 hour tablet Take 1 Tab by mouth DIRECTED. 1 in am 10 days then 2 in am busPIRone 30 MG Oral Tab Take 1 Tab by mouth TWICE DAILY. duloxetine (CYMBALTA) 30 MG Oral CAPSULE ENTERIC COATED PARTICLES TAKE ONE CAPSULE BY MOUTH EVERY DAY WITH 60MG DOSE FOR TOTAL OF 90MG duloxetine (CYMBALTA) 60 MG Oral CAPSULE ENTERIC COATED PARTICLES Take 1 Cap by mouth DAILY. famotidine (PEPCID) 40 MG Oral Tab Take 1 Tab by mouth DAILY. Iron, Ferrous Gluconate, 256 (28 FE) MG Oral Tab Take 1 Tab by mouth DAILY. Indications: IronDeficiency levothyroxine (SYNTHROID) 137 MCG Oral Tab Take 1 Tab by mouth DAILY. loratadine (CLARITIN,ALAVERT) 10 MG Oral Tab Take 1 Tab by mouth DAILY. Indications: Hayfever magnesium oxide (MAG-OX) 400 (241.3 Mg) MG Oral Tab Take 1 Tab by mouth DAILY. Omeprazole 40 MG Oral CAPSULE DELAYED RELEASE Take by mouth DAILY. oxybutynin (DITROPAN XL) 10 MG Oral TABLET SR 24 HR Take 3 Tabs by mouth DAILY. Riboflavin (VITAMIN B-2) 100 MG Oral Tab Take 2 Tabs by mouth DAILY. Rizatriptan Benzoate 10 MG Oral Tab Take by mouth DAILY NEEDED. Topiramate 25 MG Oral CAPSULE SPRINKLE Take by mouth DAILY. trazodone (DESYREL) 100 MG Oral Tab Take 1-2 Tabs by mouth EVERY BEDTIME. valacyclovir (VALTREX) 500 MG Oral Tab Take 1 Tab by mouth DAILY. Indications: Genital Herpes No current facility-administered medications for this visit. No Known Allergies Social History Socioeconomic History Marital status: Spouse name: Not on file Number of children: Not on file Years of education: Not on file Highest education level: Not on file Occupational History Not on file Social Needs Financial resource strain: Not on file Food insecurity: Worry: Not on file Inability: Not on file Transportation needs: Medical: Not on file Non-medical: Not on file Tobacco Use Smoking status: Never Smoker Smokeless tobacco: Never Used Substance and Sexual Activity Alcohol use: No Drug use: No Sexual activity: Yes control/protection: Pill Lifestyle Physical activity: Days per week: Not on file Minutes per session: Not on file Stress: Not on file Relationships Social connections: Talks on phone: Not on file Gets together: Not on file Attends restoration service: Not on file Active member of club or organization: Not on file Attends meetings of clubs or organizations: Not on file Relationship status: Not on file Intimate partner violence: Fear of current or ex partner: Not on file Emotionally abused: Not on file Physically abused: Not on file Forced sexual activity: Not on file Other Topics Concern Back Care Not Asked Bike Helmet Not Asked Blood Transfusions Not Asked Caffeine Concern No Exercise Not Asked Hobby Hazards Not Asked International Travel Not Asked Service No Occupational Exposure Not Asked Seat Belt Not Asked Self-Exams Not Asked Sleep Concern Yes Special Diet No Stress Concern Not Asked Weight Concern Yes Social History Narrative Lives in house in [place], [place] three kids Works at [employer] in [place] Grew up in [facility] is home DAD REVIEW OF SYSTEMS: Skin: negative skin lesions Eyes: negative visual blurring Ears/Nose/Throat: negative rhinorrhea, sore throat, sinus pressure, post nasal drip Respiratory: negative cough Cardiovascular: negative chest pain Gastrointestinal: negative abdominal pain, constipation, diarrhea, nausea or vomiting Genitourinary: negative burning on urination, dysuria or vaginal discharge Musculoskeletal: negative arthritis/joint pain Neurologic: negative numbness or tingling of feet or hands Psychiatric: positive depress and anxiety -- much improved Hematologic/Lymphatic/Immunologic: negative allergies Endocrine: positive hypothyroidism Objective PHYSICAL EXAMINATION: VITALS: BP 134/88 (BP Location: Right arm, Patient Position: Sitting) | Pulse 97 | Temp 98.5 F (36.9 C) | Ht 5' 3" (1.6 m) | Wt 321 lb (145.6 kg) | SpO2 98% | BMI 56.86 kg/m Body mass index is 56.86 kg/m. General appearance - alert, no distress, cooperative, oriented times 3, morbidly obese Skin - Skin color, texture, turgor normal. No rashes or lesions. Head - Normocephalic. No masses, lesions, tenderness or abnormalities Eyes - conjunctivae/corneas clear. PERRL, EOM's intact. Oropharynx - Lips, mucosa, and tongue normal. Teeth and gums normal. Oropharynx normal. Neck - Neck supple, FROM. No cervical or supraclavicular adenopathy. Thyroid normal, no enlargement Lungs - Good diaphragmatic excursion. Lungs clear. Chest symmetrical. Normal breath sounds. Heart - RRR. No murmurs, clicks or gallops. No peripheral edema. IMPRESSION: ICD-9-CM ICD-10-CM 1. Depression with anxiety 300.4 F41.8 Plan PLAN: Wrote back to work note, patient requested return date of 03/06/19 Continue with current meds, healthy diet, keep well hydrated Continue seeing therapist and psychiatrist Author: Yasmin Thorpe PA-C 03/01/2019 14:05 documented in this encounter Plan of Treatment Health Maintenance Due Date Last Done Comments HIV SCREENING 2003 PAP SMEAR 08/01/2016 08/01/2013 (Previously completed) DEPRESSION SCREENING 02/22/2020 02/21/2019, 02/21/2019 HPV IMMUNIZATION SERIES Aged Out No longer eligible based on patient's age to complete this topic MENINGOCOCCAL VACCINE IMM Aged Out No longer eligible based on patient's age to complete this topic PNEUMOCOCCAL 0-64 YRS Aged Out No longer eligible based on patient's age to complete this topic documented as of this encounter Goals Goal Patient Goal Associated Recent Patient-Stated? Author Type Problems Progress Depression Depression 9 (02/21/2019 No Nick, screen (PHQ-9) 9:40 AM EST) SHAAN Stanton total score < 5 Note: This is an individualized treatment (depression) goal for Juany Farnsworth: Displayed above is your goal for a depression screening (PHQ-9) score that would indicate good control of your depression. Keep a regular sleep schedule Lifestyle No Romy Romero FNP Note: This is an individualized lifestyle goal for Juany Farnsworth: Please maintain a regular sleep schedule. This may help with some symptoms of depression. Take all prescribed medications as Self-management No Romy Romero FNP directed Note: This is an individualized self-management goal for Juany Farnsworth: Please take all prescribed medications as directed. 1. Do not skip doses. If you cannot afford your medications, talk with your doctor. 2. Use a pill reminder system such as a pill box if needed. Your pharmacist can help you with this. 3. Contact your Pharmacy 5 days before your medication runs out. If you cannot take your medications for any reasons, talk with your doctor. 4. Please bring all of your medication bottles and inhalers (or a list of all your medications/inhalers) with you to every visit. Potential barriers to meeting all of your care plan goals will continue to be addressed on an ongoing basis. documented as of this encounter Results Not on filedocumented in this encounter Visit Diagnoses Diagnosis Depression with anxiety - Primary Dysthymic disorder documented in this encounter documented as of this encounter
--- OUTSIDE RECORDS SUMMARY | 2019-04-03 09:52 | XMS REPORT | Summary of Care ---
:1990 Author Organization [facility] Address [address] [address] Care Team Providers Name Role Phone Brian Renteria Primary Care Provider Reason for Visit Reason Comments Depression and anxiety. pt states she is doing well on the new dose. Encounter Details Date Type Department Care Team Description 02/21/2019 Office Visit [place] Yasmin Noland, Depression with Practice PASingh anxiety (Primary Dx) [address] [place] [address] [place] [address] [phone] Allergies No Known Allergiesdocumented as of this encounter (statuses as of 02/21/2019) Medications Medication Sig Dispensed Refills Start Date [...] as of this encounter (statuses as of 02/21/2019) Active Problems Problem Noted Date Mixed stress and urge urinary incontinence 10/26/2018 Prolonged grief reaction 10/04/2018 Hypothyroidism due to acquired atrophy of thyroid 07/21/2016 Recurrent genital herpes 07/21/2016 Overview: Valtrex suppressive therapy Morbid obesity due to excess calories 07/21/2016 Iron deficiency anemia due to chronic blood loss 07/21/2016 History of abnormal cervical Pap smear 07/21/2016 Overview: 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] Sign Reading Time Taken Comments Blood Pressure 136/86 02/21/2019 9:44 AM EST Pulse 94 02/21/2019 9:44 AM EST Temperature 37 02/21/2019 9:44 AM EST C (98.6 F) Respiratory Rate - - Oxygen Saturation 98% 02/21/2019 9:44 AM EST Inhaled Oxygen Concentration - - Weight 147 kg (324 lb) 02/21/2019 9:44 AM EST Height 160 cm (5' 3") 02/21/2019 9:44 AM EST Body Mass Index 57.39 02/21/2019 9:44 AM EST documented in this encounter Patient Instructions Patient InstructionsDoYasmin palacios PA-C - 02/21/2019 9:40 AM ESTImproving with new dosing of buSpar and wellbutrin Continue with current meds Continue seeing therapist weekly, keep appointment with [facility] Wed Keep well hydrated, healthy diet Call if she wants to extend OOW note documented in this encounter Progress Notes Yasmin Thorpe PA-C - 02/21/2019 9:40 AM EST PATIENT: Juany Farnsworth : 1990 DATE OF SERVICE: 02/21/2019 REFERRING PRACTITIONER: Brian Renteria PRIMARY CARE PROVIDER: Brian Renteria CHIEF COMPLAINT: Chief Complaint Patient presents with Depression and anxiety. pt states she is doing well on the new dose. Subjective HISTORY OF PRESENT ILLNESS: Juany Farnsworth is a 28-y.o. female who presents for follow up of anxiety and depression Was seen by Dr. 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 Renteria wrote OOW until 02/24/19. Not sure if she can go back yet Denies fever, chills, nausea, vomiting, diarrhea, chest [...] file Gets together: Not on file Attends [employer] service: Not on file Active member of [...] Social History Narrative Lives in house in [place], [place] three kids Works at [employer] in [place] Grew up in [facility] is home DAD REVIEW OF SYSTEMS: [...] or hands Psychiatric: positive depress and anxiety Hematologic/Lymphatic/Immunologic: negative allergies Endocrine: positive hypothyroidism Objective PHYSICAL EXAMINATION: VITALS: BP 136/86 (BP Location: Right arm, Patient Position: Sitting) | Pulse 94 | Temp 98.6 F (37 C) | Ht 5' 3" (1.6 m) | Wt 324 lb (147 kg) | SpO2 98% | BMI 57.39 kg/m Body mass index is 57.39 kg/m. General appearance - alert, no distress, [...] Depression with anxiety 300.4 F41.8 Plan PLAN: Improving with new dosing of buSpar and wellbutrin Continue with current meds Continue seeing therapist weekly, keep appointment with [facility] Wed Keep well hydrated, healthy diet Call if she wants to extend OOW note Author: Yasmin Thorpe PA-C 02/21/2019 09:46 documented in this encounter Plan of Treatment [...] Problems Progress Depression Depression 9 (02/21/2019 No keily Romero (PHQ-9) 9:40 AM EST) SHAAN Stanton total [...]
[2019-04-03 09:53] VITALS: BP 140/90
--- OUTSIDE RECORDS SUMMARY | 2019-04-03 09:53 | XMS REPORT | Summary of Care ---
:[address] [facility] Address [address] [address] Care Team Providers Name Role Phone LarimerBrian Jonas Primary Care Provider Reason for Visit Reason Comments Depression Patient states her depression and anxiety are worse due to stress. Medication Refill Pepcid is pended. Encounter Details Date Type Department Care Team Description 02/03/2019 Office Visit [place] [facility] DexterNoellevenkat Mcdaniel, Severe episode of recurrent major depressive disorder, without psychotic features (HCC) ( Primary Dx); Medicine MD Morbid obesity due to excess calories (HCC); [address] Panic attacks; [place] [address] [place] [address] Suicidal ideation; [phone] Malaise and fatigue Allergies No Known Allergiesdocumented as of this encounter (statuses as of 02/03/2019) Medications Medication Sig Dispensed Refills Start Date End Date Status Iron, Ferrous Take 1 Tab by 0 Active Gluconate, 256 (28 mouth DAILY. FE) MG Oral Indications: TabIndications: Iron Deficiency Iron Deficiency famotidine Take 40 mg by 0 Active (PEPCID) 40 MG mouth DAILY. Oral Tab Topiramate 25 MG Take by mouth 0 Active Oral CAPSULE DAILY. SPRINKLE Omeprazole 40 MG Take by mouth 0 Active Oral CAPSULE DAILY. DELAYED RELEASE Rizatriptan Take by mouth 0 Active Benzoate 10 MG DAILY Oral Tab NEEDED. trazodone Take 1-2 Tabs 60 Tab 5 10/04/2018 Active (DESYREL) 100 MG by mouth EVERY Oral Tab BEDTIME. duloxetine Take 1 Cap by 30 Cap 5 10/04/2018 Active (CYMBALTA) 30 MG mouth DAILY. Oral CAPSULE Take with 60 mg ENTERIC COATED for total dose PARTICLES 90 mg oxybutynin Take 3 Tabs by 270 Tab 3 10/26/2018 Active (DITROPAN XL) 10 mouth DAILY. MG Oral TABLET SR 24 HR loratadine Take 1 Tab by 90 Tab 3 10/27/2018 Active (CLARITIN,ALAVERT) mouth DAILY. 10 MG Oral Indications: TabIndications: Hayfever Seasonal Allergic Rhinitis magnesium oxide Take 1 Tab by 30 Tab 0 11/03/2018 Active (MAG-OX) 400 mouth DAILY. (241.3 Mg) MG Oral Tab duloxetine Take 1 Cap by 90 Cap 5 11/22/2018 Active (CYMBALTA) 60 MG mouth DAILY. Oral CAPSULE ENTERIC COATED PARTICLESIndicatio ns: Depression with anxiety valacyclovir Take 1 Tab by 90 Tab 3 01/06/2019 Active (VALTREX) 500 MG mouth DAILY. Oral Indications: TabIndications: Genital Herpes Genital Herpes Simplex levothyroxine Take 1 Tab by 30 Tab 1 01/16/2019 Active (SYNTHROID) 137 mouth DAILY. MCG Oral Tab Riboflavin Take 2 Tabs by 60 Tab 5 01/31/2019 Active (VITAMIN B-2) 100 mouth DAILY. MG Oral Tab busPIRone 30 MG Take 1 Tab by 60 Tab 4 02/03/2019 Active Oral Tab mouth TWICE DAILY. buPROPion XL Take 1 Tab by 60 Tab 5 02/03/2019 Active (WELLBUTRIN XL) mouth 150 MG Oral TABLET DIRECTED. 1 in SR 24 HR 24 hour am 10 days then tablet 2 in am Norgestimate-Ethin Take 1 Tab by 0 02/04/20 Discontinued yl Estradiol mouth. 19 (TRINESSA, 28,) 0.18/0.215/0.25 MG-35 MCG Oral Tab busPIRone (BUSPAR) Take 1 Tab by 60 Tab 5 10/04/2018 02/04/20 Discontinued 15 MG Oral Tab mouth TWICE 19 (Dose DAILY. Adjustment) oxybutynin Take 1 Tab by 90 Tab 3 10/27/2018 02/04/20 Discontinued (DITROPAN XL) 10 mouth DAILY. 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] Sign Reading Time Taken Comments Blood Pressure 124/82 02/03/2019 11:25 AM EDT Pulse 82 02/03/2019 11:25 AM EDT Temperature - - Respiratory Rate - - Oxygen Saturation - - Inhaled Oxygen Concentration - - Weight 146.5 kg (323 lb) 02/03/2019 11:25 AM EDT Height 160 cm (5' 3") 02/03/2019 11:25 AM EDT Body Mass Index 57.22 02/03/2019 11:25 AM EDT documented in this encounter Patient Instructions Patient InstructionsBrian Renteria MD - 02/03/2019 11:20 AM EDTBlood test today Continue duloxitene Add buproprion xl in am one for ten days then 2 in am Follow up Shelby GOODSON or Shanet Corley NP 2-3 weeks Go back to [facility] Talk to your therapist Note for off work for 2 weeks Call [facility] Social service offices to get forms fill out for short term disability documented in this encounter Progress Notes Brian Renteria MD - 02/03/2019 11:20 AM EDT PATIENT: Juany Farnsworth : 1990 DATE OF SERVICE: 02/03/2019 CHIEF COMPLAINT: Chief Complaint Patient presents with Depression Patient states her depression and anxiety are worse due to stress. Medication Refill Pepcid is pended. Subjective HISTORY OF PRESENT ILLNESS: Juany Farnsworth is a 28-y.o. female. HPI 3-4 weeks increased stressors and daily blue mood anhedonia and trouble focusing at work she works at [employer] She is and works they have 3 kids one child is sick and needs tonsils out Patient feels tired all the time and has poor sleep due to panic attacks and nnight time rumination despite use of trazodone 100 mg at bedtime She is compliant with buspar 15 mg twice daily And duloxitene 90 mg daily she denies alcohol or drug abuse She admits to suicidal ideation but no formed plan or intent and no prior history of suicide attempt She had tried and failed venlafaxine and escitalopram She feels she needs note for off work and asks about applying for short term disability She had previously been doing therapy at [facility] through October but quit when she started to feel better Patient Active Problem List Diagnosis Hypothyroidism due to acquired atrophy of thyroid Recurrent genital herpes Morbid obesity due to excess calories (HCC) Iron deficiency anemia due to chronic blood loss History of abnormal cervical Pap smear Obstructive sleep apnea 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 1 in am 10 days then 2 in am busPIRone 30 MG Oral Tab Take 1 Tab by mouth TWICE DAILY. duloxetine (CYMBALTA) 30 MG Oral CAPSULE ENTERIC COATED PARTICLES Take 1 Cap by mouth DAILY. Take with 60 mg for total dose 90 mg duloxetine (CYMBALTA) 60 MG Oral CAPSULE ENTERIC COATED PARTICLES Take 1 Cap by mouth DAILY. famotidine (PEPCID) 40 MG Oral Tab Take 40 mg by mouth DAILY. Iron, Ferrous Gluconate, 256 [...] file Gets together: Not on file Attends method[employer] service: Not on file Active member of [...] Social History Narrative Lives in house in [place], [place] three kids Works at [employer] in [place] G[facility] up in [facility] is home DAD ROS no new thyroid or anemia symptoms but persistent daily fatigue Objective PHYSICAL EXAM: VITALS: BP 124/82 | Pulse 82 | Ht 5' 3" (1.6 m) | Wt 323 lb (146.5 kg) | BMI 57.22 kg/m Body mass index is 57.22 kg/m. Physical Exam Mental Status: depressed mood, affect appropriate to mood, anxious, good insight PHQ-9 score is: 24 GATO 7 Score (generalized anxiety disorder) is: 19/21 . I spent 40 minutes with the patient, greater than half of this time in direct face to face counseling regarding the condition and the plan of care. ASSESSMENT / IMPRESSION: ICD-9-CM ICD-10-CM 1. Severe episode of recurrent major depressive disorder, without psychotic features (HCC) continue duloxitene add on buproprion in am and titrate up follow up 2 weeks re establish care with therapist at [facility] 296.33 F33.2 2. Morbid obesity due to excess calories (HCC) 278.01 E66.01 3. Panic attacks increase buspar 30 mg twice daily 300.01 F41.0 4. Suicidal ideation she is safe this was discussed at length with her V62.84 R45.851 5. 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 Go back to [facility] Talk to your therapist Note for off work for 2 weeks Call [facility] Social service offices to get forms fill out for short term disability Brian Renteria MD 02/03/2019 13:02 documented in this encounter Plan of Treatment Date Type Specialty Care Team Description 02/21/2019 Office Visit Family Practice Yasmin Thorpe PA-C [address] [place] [address] [phone] Name Type Priority Associated Diagnoses Date/Time CBC WITH DIFFERENTIAL Lab Routine Malaise and fatigue 02/03/2019 12:18 PM EDT FERRITIN Lab Routine Malaise and fatigue 02/03/2019 12:18 PM EDT COMPREHENSIVE METABOLIC Lab Routine Malaise and fatigue 02/03/2019 12:18 PM EDT PANEL THYROID STIMULATING HORMONE Lab Routine Malaise and fatigue 02/03/2019 12: 18 PM EDT Health Maintenance Due Date Last Done Comments HIV SCREENING 2003 PAP SMEAR 08/01/2016 08/01/2013 (Previously completed) DEPRESSION SCREENING 09/16/2019 09/15/2018, 09/15/2018 HPV IMMUNIZATION SERIES Aged Out No longer [...] Patient-Stated? Author Type Problems Progress Depression Depression 26 No keily Romero (PHQ-9) (09/15/2018 SHAAN Stanton total score < 5 11:07 AM EDT) Note: This is an individualized treatment (depression) goal for Juany Grisel Acevedoyuni: Displayed above is your goal for a depression screening (PHQ-9) score that would indicate good control of your depression. Keep a regular sleep schedule Lifestyle No Romy Romero FNP Note: This is an individualized lifestyle goal for Juany Farnsworth: Please maintain a regular sleep schedule. This may help with some symptoms of depression. Take all prescribed medications as Self-management No Lamont, Romy, MILLER FIRST directed Note: This is an individualized self-management [...] filedocumented in this encounter Visit Diagnoses Diagnosis Severe episode of recurrent major depressive disorder, without psychotic features (HCC) - Primary Morbid obesity due to excess calories (HCC) Panic attacks Panic disorder without agoraphobia Suicidal ideation Malaise and fatigue Other malaise and fatigue documented in this encounter documented as of this encounter
--- NOTE | 2019-04-03 10:00 | UC ---
Respiratory Complaint HPI - HPI Summary HPI Summary: 28 yo with second hand smoke exposure, with a 4 day history of cough with increasing shortness of breath. She has been using albuterol multiple times per day, both her sister's nebulizer and her own albuterol, but without a spacing device. She has not had fever, sore throat or ear pain. Hx of chronically disturbed sleep, not made worse by this illness. Hx of environmental allergies, but these typically do not trigger her asthma. - History of Current Complaint Chief Complaint: UCRespiratory Stated Complaint: COUGH , DIFFICULTY BREATHING Time Seen by Provider: 04/03/19 09:58 Hx Obtained From: Patient Hx Last Menstrual Period: 03/27/19 Onset/Duration: Gradual Onset, Lasting Days - 4 Timing: Intermittent Episodes Severity Initially: Mild Severity Currently: Moderate Pain Intensity: 0 Character: Cough: Productive - occasional sputum Aggravating Factors: Exertion, Deep Breaths Alleviating Factors: Bronchodilator Associated Signs And Symptoms: Positive: Dyspnea, Wheezing, URI, Nasal Congestion. Negative: Fever - Risk Factors Pulmonary Embolism Risk Factors: Negative Cardiac Risk Factors: Negative Pseudomonas Risk Factors: Negative Tuberculosis Risk Factors: Negative - Allergies/Home Medications Allergies/Adverse Reactions: Allergies Allergy/AdvReac Type Severity Reaction Status Date / Time Sulfa (Sulfonamide Allergy Hives Verified 04/03/19 09:53 Antibiotics) PMH/Surg Hx/FS Hx/Imm Hx - Additional Past Medical History Additional PMH: obesity Endocrine History: Hypothyroidism Psychological History: Anxiety - Surgical History Surgical History: None Surgery Procedure, Year, and Place: denies - Family History Known Family History: Positive: Respiratory Disease - Father: COPD, emphysema. Sister has asthma. Family History: Mother: Lung CA. - Social History Occupation: Unemployed Lives: With Family Alcohol Use: None Substance Use Type: None Smoking Status (MU): Never Smoked Tobacco Have You Smoked in the Last Year: No - Immunization History Most Recent Influenza Vaccination: n/a Most Recent Tetanus Shot: unk Most Recent Pneumonia Vaccination: n/a Review of Systems All Other Systems Reviewed And Are Negative: Yes Constitutional: Positive: Fatigue. Negative: Fever Skin: Positive: Negative Eyes: Positive: Negative ENT: Positive: Nasal Discharge. Negative: Sore Throat, Ear Ache Respiratory: Positive: Shortness Of Breath, Cough Cardiovascular: Negative: Palpitations, Chest Pain Gastrointestinal: Positive: Negative Genitourinary: Positive: Negative Motor: Positive: Negative Neurovascular: Positive: Negative Musculoskeletal: Positive: Negative Neurological: Positive: Negative Psychological: Positive: Negative Is Patient Immunocompromised?: No Physical Exam Triage Information Reviewed: Yes Appearance: Well-Appearing, No Pain Distress, Obese Vital Signs: Initial Vital Signs Temp 98.5 F 04/03/19 09:49 Pulse 86 04/03/19 09:49 Resp 16 04/03/19 09:49 BP 140/90 04/03/19 09:49 Pulse Ox 100 04/03/19 09:49 ENT: Positive: Pharynx normal, TMs normal Neck: Positive: Supple, Nontender, No Lymphadenopathy Respiratory: Positive: Lungs clear, Normal breath sounds, No respiratory distress, No accessory muscle use. Negative: Crackles, Rhonchi, Stridor, Wheezing Cardiovascular: Positive: RRR, No Murmur Musculoskeletal Exam: Normal Musculoskeletal: Positive: No Edema Neurological: Positive: Alert Psychological Exam: Normal Respiratory Course/Dx - Course Course Of Treatment: Discussed likely viral illness triggering pre-existing asthma. Will add a steroid inhaler, continue use of albuterol, and follow up if not responding. - Differential Dx/Diagnosis Differential Diagnosis/HQI/PQRI: Asthma, Bronchitis Provider Diagnosis: Asthma exacerbation, mild Discharge ED - Sign-Out/Discharge Documenting (check all that apply): Patient Departure All imaging exams completed and their final reports reviewed: No Studies - Discharge Plan Condition: Stable Disposition: HOME Prescriptions: Fluticasone HFA 110 mcg(NF) [Flovent HFA 110 mcg(NF)] 2 puff INH BID #1 mdi Patient Education Materials: Asthma (ED) Referrals: Glenda Posada RN [Primary Care Provider] - Additional Instructions: Your blood pressure today is elevated to 140/90; please ensure that you have a follow up check within the month. Your asthma is being triggered by a viral infection. At this time, a steroid inhaler would be helpful; use 2 puffs of flovent twice daily via aerochamber, and ensure that you rinse your mouth after use. Continue use twice daily until your need for albuterol decreasest to no more than once daily. At that time, decrease the dose to once daily. If your albuterol need increases, increase the dose again. If you are doiing well, you can then stop the inahler after 5 to 7 days. Return if you have worsening shortness of breath or chest pain. - Billing Disposition and Condition Condition: STABLE Disposition: Home
== END 2019-04-03 10:31 | disposition home or self-care (01) ==
LOC: UCEAST 09:44
DX: J45.901 Unspecified asthma with (acute) exacerbation (principal); E66.9 Obesity, unspecified; Z88.2 Allergy status to sulfonamides
CPT/HCPCS: 99212; G0463